=== PATIENT | male | born 1965 | race American Indian/Alaskan Native ===

== ENCOUNTER 2017-06-09 08:22 | Emergency (ER) | payer MEDICARE ==
[2017-06-09 09:00] LABS: Hematocrit 45.1 % (35.5-45.6); Hemoglobin 15.1 gm/dl (11.8-15.2); Mean Corpuscular HGB Conc 33 % (32-34); Mean Corpuscular Hemoglobin 34 pg (28-32); Mean Corpuscular Volume 101 fl (84-94); Platelet Count 285 K/mm3 (140-440); Red Blood Count 4.45 M/mm3 (3.65-5.03); Red Cell Distribution Width 14.6 % (13.2-15.2); White Blood Count 7.6 K/mm3 (4.5-11.0)
[2017-06-09 09:03] LABS: Bilirubin,Urine NEG (Negative); Blood,Urine SM (Negative); Ketones,Urine NEG (Negative); Leukocyte Esterase,Urine TR (Negative); Mucus,Urine 2+ /HPF; Nitrite,Urine NEG (Negative); Urobilinogen,Urine < 2.0 mg/dL (<2.0)
[2017-06-09 09:08] LABS: Calcium 8.6 mg/dL (8.4-10.2); Chloride 102.7 mmol/L (98-107)
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
[2017-06-09 11:09] LABS: Basophils % (Manual) 0 % (0.0-1.8); Blastocytes % (Manual) 0 %
[2017-06-09 11:10] LABS: Anisocytosis Few; Diff Status Complete; Poikilocytosis Few
[2017-06-09 12:39] VITALS: BP 156/99
[2017-06-09] MEDS ORDERED: ZITHROMAX PO ONE (12:46)
== END 2017-06-09 13:12 | disposition home or self-care (01) ==
LOC: ED 08:22
DX: N28.9 Disorder of kidney and ureter, unspecified (principal); N30.01 Acute cystitis with hematuria; F17.200 Nicotine dependence, unspecified, uncomplicated; J45.909 Unspecified asthma, uncomplicated; I10 Essential (primary) hypertension; F14.10 Cocaine abuse, uncomplicated; Z88.2 Allergy status to sulfonamides
CPT/HCPCS: 36415; 80048; 81001; 85007; 85025; 87086; 99283